=== PATIENT | female | born 1930 | race Caucasian/White ===

== ENCOUNTER 2019-03-24 13:35 | Emergency (ER) | payer OTHER ==
[~2019-03-24] VITALS: Ht 162.6 cm; Wt 84.4 kg
[~2019-03-24 13:35] MED LIST: COREG CR20 MG PO; LISINOPRIL20 MG PO
[2019-03-24 14:02] LABS: ABSOLUTE NEUTROPHILS 4.4 thou/uL (1.4-8.2); BASOPHILS 0.5 % (0.0-2.0); HEMATOCRIT 41.3 % (37.0-47.0); HEMOGLOBIN 13.4 gm/dL (12.0-15.0); LYMPHOCYTES 14.9 % (24.0-44.0); MCH 30.6 pg (26.0-34.0); MCHC 32.4 g/dL (28.0-37.0); MCV 94.4 fL (80.0-100.0); PLATELET COUNT 366 thou/uL (150-400); POLYS 74.6 % (36.0-66.0); RBC 4.37 mil/uL (4.20-5.00); RDW 13.6 % (10.5-14.5)
[2019-03-24 14:12] LABS: ANION GAP 11 mmol/L (7-16); BUN 10 mg/dL (7-18); CALCIUM 9.4 mg/dL (8.5-10.1); CHLORIDE 103 mmol/L (98-107); CO2 24 mmol/L (21-32); CREATININE 1.3 mg/dL (0.6-1.0); GLUCOSE 128 mg/dL (74-106); POTASSIUM 4.8 mmol/L (3.5-5.1); SODIUM 138 mmol/L (136-145)
[2019-03-24 14:16] LABS: APTT 33.5 Seconds (24.5-32.8); INR 1.1
[2019-03-24 14:22] LABS: ALBUMIN 3.5 g/dL (3.4-5.0); MAGNESIUM 1.8 mg/dL (1.8-2.4); SGOT 26 U/L (15-37); SGPT 25 U/L (30-65); TOTAL BILIRUBIN 0.5 mg/dL (<0.1-1.0); TOTAL PROTEIN 7.2 g/dL (6.4-8.2); TROPONIN-I <0.06 ng/mL (<0.06)
[2019-03-24 16:06] VITALS: BP 137/81
--- NOTE | 2019-03-25 12:39 | EKG ---
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
--- NOTE | 2019-03-25 12:51 | EKG ---
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 : 1930 Requested By: Jayant Cat Order Number: [id number] MD: Rod Duque Measurements Intervals [place] Rate: 59 P: 133 MA: 154 QRS: 176 QRSD: 125 T: 128 QT: 479 QTc: 475 Interpretive Statements Atrial-sensed ventricular-paced complexes No further analysis attempted due to paced rhythm Compared to ECG 07/21/2012 12:14:50 Wide-complex tachycardia no longer present Electronically Signed On 03-25-2019 12:50:52 CDT by Rod Duque [email or web address] <ELECTRONICALLY SIGNED> By: Rod Duque MD, [facility] 03/25/19 1250 1522 1522 Rod Duque MD, [facility] /EPI
== END 2019-03-24 16:07 | disposition home or self-care (01) ==
LOC: ER 13:35
PROVIDERS: Emergency Medicine
DX: I47.1 Supraventricular tachycardia (principal); M13.862 Other specified arthritis, left knee; M13.861 Other specified arthritis, right knee; M13.852 Other specified arthritis, left hip; M13.851 Other specified arthritis, right hip; Z95.0 Presence of cardiac pacemaker; Z90.49 Acquired absence of other specified parts of digestive tract

== ENCOUNTER 2019-05-22 13:10 | Emergency (ER) | payer OTHER ==
[~2019-05-22] VITALS: Ht 162.6 cm; Wt 79.4 kg
[2019-05-22 13:38] LABS: HEMATOCRIT 40.8 % (37.0-47.0); HEMOGLOBIN 13.3 gm/dL (12.0-15.0); MCH 30.3 pg (26.0-34.0); MCHC 32.5 g/dL (28.0-37.0); MCV 93.3 fL (80.0-100.0); RBC 4.37 mil/uL (4.20-5.00); WBC 5.8 thou/uL (4.0-11.0)
[2019-05-22 13:44] LABS: CALCIUM 9.4 mg/dL (8.5-10.1); POTASSIUM 3.9 mmol/L (3.5-5.1)
[2019-05-22 13:52] LABS: APTT 30.8 Seconds (24.5-32.8); INR 1.1; PROTIME 11.3 Seconds (9.3-11.4)
[2019-05-22] MEDS ORDERED: TRAMADOL 50 MG50 MG PO (14:55)
[2019-05-22 15:03] VITALS: BP 149/67
== END 2019-05-22 15:04 | disposition home or self-care (01) ==
LOC: ER 13:10
PROVIDERS: Emergency Medicine
DX: S01.01XA Laceration without foreign body of scalp, initial encounter (principal); I48.20 Chronic atrial fibrillation, unspecified; M19.90 Unspecified osteoarthritis, unspecified site; Z90.49 Acquired absence of other specified parts of digestive tract; Z79.01 Long term (current) use of anticoagulants; W01.190A Fall on same level from slipping, tripping and stumbling with subsequent striking against furniture, initial encounter; Y92.009 Unspecified place in unspecified non-institutional (private) residence as the place of occurrence of the external cause; Y93.89 Activity, other specified; Y99.8 Other external cause status

== ENCOUNTER 2019-06-04 08:31 | Emergency (ER) | payer OTHER ==
[~2019-06-04] VITALS: Ht 162.6 cm; Wt 80.7 kg
[~2019-06-04 08:31] MED LIST changes: +TRAMADOL 50 MG50 MG PO
[2019-06-04] MEDS ORDERED: ELIQUIS5 MG PO (08:32)
[2019-06-04 09:02] LABS: ABSOLUTE NEUTROPHILS 4.4 thou/uL (1.4-8.2); BASOPHILS 0.7 % (0.0-2.0); EOSINOPHILS 2.9 % (0.0-3.0); HEMATOCRIT 36.8 % (37.0-47.0); HEMOGLOBIN 12.1 gm/dL (12.0-15.0); LYMPHOCYTES 13.5 % (24.0-44.0); MCH 30.5 pg (26.0-34.0); MCHC 32.9 g/dL (28.0-37.0); MCV 92.8 fL (80.0-100.0); MONOCYTES 10.1 % (1.0-8.0); PLATELET COUNT 382 thou/uL (150-400); POLYS 72.8 % (36.0-66.0); RBC 3.96 mil/uL (4.20-5.00); RDW 13.8 % (10.5-14.5)
[2019-06-04 09:11] LABS: CALCIUM 9.1 mg/dL (8.5-10.1); POTASSIUM 4.9 mmol/L (3.5-5.1)
[2019-06-04 09:14] LABS: APTT 31.4 Seconds (24.5-32.8); INR 1.1; PROTIME 11.9 Seconds (9.3-11.4)
[2019-06-04 10:18] VITALS: BP 147/73
[2019-06-04] MEDS ORDERED: PACERONE200 MG PO (20:30)
[2019-06-04] MEDS ORDERED: SUPER THERAVIT1 EACH PO (20:32)
[2019-06-04] MEDS ORDERED: BUPROPION XL300 MG PO (20:32)
[2019-06-04] MEDS ORDERED: PROBIOTIC1 EAC7 PO (20:33)
[2019-06-04] MEDS ORDERED: MUCINEX600 MG PO (20:34)
[2019-06-04] MEDS ORDERED: GLUCOSAMINE-CH1 EA33 PO (20:35)
== END 2019-06-04 10:00 | disposition home or self-care (01) ==
LOC: ER 08:31
PROVIDERS: Emergency Medicine
DX: S01.01XA Laceration without foreign body of scalp, initial encounter (principal); Z90.49 Acquired absence of other specified parts of digestive tract; W01.190A Fall on same level from slipping, tripping and stumbling with subsequent striking against furniture, initial encounter; Y93.89 Activity, other specified; Y92.89 Other specified places as the place of occurrence of the external cause; Y99.8 Other external cause status

== ENCOUNTER 2019-06-04 13:15 | Inpatient (IN) | payer OTHER ==
[~2019-06-04] VITALS: Ht 162.6 cm; Wt 81.2 kg
[~2019-06-04 13:15] MED LIST changes: +ELIQUIS5 MG PO
[2019-06-04 13:17] VITALS: BP 136/88
[2019-06-04 15:08] LABS: HEMATOCRIT 30.6 % (37.0-47.0); MCH 30.3 pg (26.0-34.0); MCHC 32.5 g/dL (28.0-37.0); RBC 3.29 mil/uL (4.20-5.00); RDW 13.7 % (10.5-14.5); WBC 6.1 thou/uL (4.0-11.0)
[2019-06-04 17:18] VITALS: BP 134/65
--- NOTE | 2019-06-04 17:24 | NUR ---
CALLED [facility], SPOKE WITH JOSEPH. INFORMED THEM THAT HAND OFF TOOL WAS SENT TO PRINTER
[2019-06-04 17:41] VITALS: BP 153/74
[2019-06-04 18:28] VITALS: BP 162/98
[2019-06-04 18:41] LABS: HEMOGLOBIN 10.3 gm/dL (12.0-15.0)
[2019-06-04 18:51] LABS: CALCIUM 8.9 mg/dL (8.5-10.1); POTASSIUM 4.1 mmol/L (3.5-5.1)
[2019-06-04 18:57] LABS: INR 1.1
--- NOTE | 2019-06-04 19:28 | NUR ---
PATIENT ADMIT TO UNIT AT 1820. A/O X4. NO DISDRESS NOTED. WILL KEEP MONITOR.
[2019-06-04 19:57] VITALS: BP 134/68
[2019-06-04] MEDS ORDERED: PACERONE200 MG PO (20:30)
[2019-06-04] MEDS ORDERED: BUPROPION XL300 MG PO (20:32)
[2019-06-04] MEDS ORDERED: SUPER THERAVIT1 EACH PO (20:32)
[2019-06-04] MEDS ORDERED: PROBIOTIC1 EAC7 PO (20:33)
[2019-06-04] MEDS ORDERED: MUCINEX600 MG PO (20:34)
[2019-06-04] MEDS ORDERED: GLUCOSAMINE-CH1 EA33 PO (20:35)
[2019-06-04 23:56] VITALS: BP 122/53
--- NOTE | 2019-06-05 00:50 | NUR ---
ADMISSION PROCESS COMPLETED. ORIENTED TO ROOM AND FLOOR POLICIES. SLEEPING WITHOUT PRESENT COMPLAINTS. ACEWRAP AND DRESSING TO HEAD INTACT AND DRY. REMAINS ALERT AND ORIENTED X4. UP TO BATHROOM WITH STANDBY ASSIST WITH STEADY GAIT. WORKING ON GOALS AND PLAN OF CARE FOR NOC. PROGRESSING SLOWLY TOWARDS DISCHARGE GOALS. CONTINUE TO ASSES CLOSELY.
[2019-06-05 04:27] VITALS: BP 114/55
[2019-06-05 07:21] VITALS: BP 121/57
[2019-06-05 11:51] VITALS: BP 129/63
[2019-06-05 12:01] VITALS: BP 121/57
--- NOTE | 2019-06-05 12:50 | NUR ---
no bleeding noted, dc to home now.
--- NOTE | 2019-06-09 14:08 | HC ---
[facility] [place] [address] CONSULTATION Name: JESSICA BENEDICT Room #: 354-P [facility] IN M.R.#: [id number] Admission: 06/04/19 Attend Phys: Alton Tiwari MD Discharge: 06/05/19 Date of : [birth year] Report #: [id number] THIS REPORT FOR: //name// CC: Alton Pardo CARDIOLOGY CONSULTATION REASON FOR CONSULTATION: Recurrent scalp bleeding on Eliquis. HISTORY OF PRESENT ILLNESS: The patient is an 88-year-old female who has a history of atrial fibrillation as well as cardiomyopathy, status post ICD implantation. She follows with a mononitrotoluene operator at [facility]. She reports that she has had AFib for quite some time and has been on Eliquis for at least a year. She was previously on sotalol therapy, which was not working and was transitioned to amiodarone recently. In March, she underwent a cardioversion with worship of sinus rhythm and has actually been doing much better. Recently, the patient had a fall at home. She reports that she tripped on something and hit the back of her head and had a laceration that was sutured. She was noted to have some rebleeding yesterday and came to the Emergency Room. A stitch was placed, but then came back again to the ER with continued bleeding. She was therefore admitted. Her Eliquis has been placed on hold. She denies any chest pain, shortness of breath, PND, orthopnea, presyncope or syncope. She thinks she has a [employer] device, but is not sure. PAST MEDICAL HISTORY: As above. SOCIAL HISTORY: Does not smoke. FAMILY HISTORY: Noncontributory. MEDICATIONS: Have been reviewed. ALLERGIES: None. PHYSICAL EXAMINATION: VITAL SIGNS: Stable. GENERAL: No acute distress. HEENT: Oropharynx clear. She has some blood in the hair. HEART: Regular rate and rhythm. No murmurs, rubs or gallops. LUNGS: Clear to auscultation bilaterally. ABDOMEN: Soft, nontender, nondistended with no hepatosplenomegaly. EXTREMITIES: No clubbing, cyanosis, edema. NEUROLOGIC: Cranial nerves 2-12 are intact. Telemetry shows that she is in sinus rhythm with a ventricular paced rhythm. [facility] [address] [place] [address] CONSULTATION Name: JESSICA BENEDICT Room #: 354-P [facility] IN ..#: [id number] Admission: 06/04/19 Attend Phys: Alton Tiwari MD Discharge: 06/05/19 Date of : [birth year] Report #: [id number] LABORATORY DATA: Hemoglobin 10, white count 6, platelets 344. Coags: INR 1.1. Chemistries: Sodium 140, potassium 4.1, BUN 14, creatinine 1.0. ASSESSMENT: 1. Atrial fibrillation. 2. Cardiomyopathy. 3. Recurrent scalp bleeding. PLAN: In summary, the patient is an 88-year-old female who has continued bleeding from the scalp. This appears to have stopped today. I have recommended that we continue to hold her Uriel and she can resume this on Sunday. I am okay with her being discharged home. She should follow up with her general mononitrotoluene operator. If she were to have rebleeding, she will need to discuss this with her mononitrotoluene operator at . She did briefly discuss with me Watchman. I discussed risks, benefits of this procedure and again I have deferred this treatment option to her general mononitrotoluene operator. Thank you for allowing me to participate in her care. <ELECTRONICALLY SIGNED> By: Rylan Alves MD 06/09/19 1408 1132 1149 Rylan Alves MD /nt
== END 2019-06-05 13:37 | disposition home or self-care (01) | DRG 605 ==
LOC: ER 13:15 → 3W 16:52 → EROBS 16:52 → 3W 18:20
PROVIDERS: Emergency Medicine; ADMIT Hospitalist
PROC: 0HQ0XZZ Repair Scalp Skin, External Approach (ICD-10-PCS; principal; 2019-06-04)
DX: S00.03XA Contusion of scalp, initial encounter (principal); D62 Acute posthemorrhagic anemia; I42.9 Cardiomyopathy, unspecified; M17.0 Bilateral primary osteoarthritis of knee; M16.0 Bilateral primary osteoarthritis of hip; I95.9 Hypotension, unspecified; I48.91 Unspecified atrial fibrillation; Z82.49 Family history of ischemic heart disease and other diseases of the circulatory system; Z80.41 Family history of malignant neoplasm of ovary; I10 Essential (primary) hypertension; Z90.49 Acquired absence of other specified parts of digestive tract; W01.0XXA Fall on same level from slipping, tripping and stumbling without subsequent striking against object, initial encounter; Y93.89 Activity, other specified; Y92.89 Other specified places as the place of occurrence of the external cause; Y99.8 Other external cause status
CPT/HCPCS: 10879

== ENCOUNTER → 2019-10-02 | Outpatient (CLI) | payer OTHER ==
[~2019-10-02] MED LIST changes: +ACETAMINOPHEN325 M1 PO; +BUPROPION XL300 MG PO; +CARVEDILOL12.5 MG PO; +DEMADEX20 MG PO; +GLUCOSAMINE-CH1 EA33 PO; +LISINOPRIL2.5 MG PO; +MUCINEX600 MG PO; +PACERONE 200 M200 M1 PO; +PACERONE200 MG PO; +PROBIOTIC1 EAC7 PO; +SUPER THERAVIT1 EACH PO
== END ==
LOC: SJCVC 13:07
DX: I42.9 Cardiomyopathy, unspecified (principal); R94.31 Abnormal electrocardiogram [ECG] [EKG]; E78.5 Hyperlipidemia, unspecified; I48.91 Unspecified atrial fibrillation; Z79.899 Other long term (current) drug therapy; Z95.810 Presence of automatic (implantable) cardiac defibrillator

== ENCOUNTER → 2019-11-25 | Outpatient (CLI) | payer OTHER | LOC: SJCVC 10:52 | PROVIDERS: ATTEND Internal Medicine | DX: I42.9 Cardiomyopathy, unspecified (principal); I50.20 Unspecified systolic (congestive) heart failure; R42 Dizziness and giddiness; M19.90 Unspecified osteoarthritis, unspecified site; Z79.899 Other long term (current) drug therapy; Z82.49 Family history of ischemic heart disease and other diseases of the circulatory system ==

== ENCOUNTER → 2020-02-10 | Outpatient (CLI) | payer OTHER | LOC: SJCVCIMAG 07:22 | PROVIDERS: ATTEND Internal Medicine | DX: I08.8 Other rheumatic multiple valve diseases (principal); I42.9 Cardiomyopathy, unspecified; I50.9 Heart failure, unspecified; I48.91 Unspecified atrial fibrillation; M15.3 Secondary multiple arthritis; Z82.49 Family history of ischemic heart disease and other diseases of the circulatory system; Z95.810 Presence of automatic (implantable) cardiac defibrillator; Z79.899 Other long term (current) drug therapy ==